=== PATIENT | female | born 1955 | race Caucasian/White ===

== ENCOUNTER 2019-09-10 01:19 | Outpatient (CLI) | payer MEDICARE, SELFPAY ==
--- NOTE | 2019-09-10 08:28 | DI.MAMMO_ITS ---
EXAM: MAMMO SCREENING CLINICAL HISTORY: SCREENING, Z12.31, [facility], Z00.00. TECHNIQUE: Full field digital CC and MLO mammographic images were obtained with 3D tomosynthesis and utilizing computer aided detection (CAD). COMPARISON: . 2009 to 2016 FINDINGS: Breast Density - Category B - Scattered areas of fibroglandular density Masses/Architectural Distortion: None seen. Microcalcifications: No suspicious pleomorphic-type calcifications are seen. Skin Thickening/Nipple Retraction: None. Axilla: Unremarkable. IMPRESSION: 1. BI-RADS category 1, negative. No significant interval change with no specific features of maligna ncy noted. 2. Unless there is more urgent need, screening mammography is recommended, as per [employer] guidelines. A negative radiographic report should not delay biopsy if a dominant or clinically suspicious mass is present. Up to ten percent of cancers are not identified on mammography. A negative report may reinforce clinical impression. Adenosis and dense breasts may obscure an underlying neoplasm. False positive reports average 6 to 10%. Patient will receive a letter notifying them of these results.
== END 2019-09-10 01:39 ==
PROVIDERS: PCP Family Medicine; Visit Provider Family Medicine
DX: Z12.31 Encounter for screening mammogram for malignant neoplasm of breast (principal)
CPT/HCPCS: 77063; 77067

== ENCOUNTER 2019-09-11 13:39 | Outpatient (REF) | payer MEDICARE, SELFPAY ==
--- NOTE | 2019-09-11 13:25 | PAPFT_PTH ---
PATIENT: Denice Alcala LOC: [facility] U#:[id number] AGE/SX: 64/F ROOM: RE09/11/[address]: Jaren Anderson MD : 1955 BED: DIS: 09/11/2019 SPEC #: [id number] RECD: 09/11/19 17:11 STATUS: QASIM REQ #: [id number] SUNNI: 09/11/19 13:[address]: Jaren Anderson DEPT: [facility] Cytology RECD BY: Uma Lilly ENTERED: 09/11/19 17:11 SP TYPE: PAPFT OTHR DR: Rita Helm V Tissues: 1 - CX/ENDOCX FOR PAP SMEARS Procedures: PAP THIN PREP/UVM Screening HPV DNA PROBE Comments: [id number]
== END 2019-09-11 13:59 ==
LOC: LBN 13:39
PROVIDERS: PCP Family Medicine; Visit Provider Obstetrics & Gynecology
DX: Z12.4 Encounter for screening for malignant neoplasm of cervix (principal); Z11.51 Encounter for screening for human papillomavirus (HPV)
CPT/HCPCS: 88142; 87624

== ENCOUNTER 2021-07-19 17:12 | Outpatient (REF) | payer MEDICARE, SELFPAY ==
[2021-07-21 17:01] LABS: COVID-19 RT-PCR UVMMC Result Negative (Negative)
== END 2021-07-19 17:13 | disposition home or self-care (01) ==
LOC: NCHCN 17:12
PROVIDERS: PCP Family Medicine; Visit Provider Family Medicine
DX: Z20.822 Contact with and (suspected) exposure to COVID-19 (principal); R42 Dizziness and giddiness
CPT/HCPCS: U0003

== ENCOUNTER 2021-07-20 03:10 | Outpatient (CLI) | payer MEDICARE, SELFPAY ==
[2021-07-20 07:55] LABS: HCT 49.1 % (36.0-46.0); HGB 15.6 g/dL (11.2-15.7); MCH 29.9 pg (27.0-33.0); MCHC 31.8 % (32.0-36.0); MCV 94.1 fL (80-95); MPV 9.3 fL (8.0-11.0); Platelet Count 270 10^3/uL (130-400); RBC 5.22 10^6/uL (3.93-5.22); RDW 13.2 % (11.7-14.6); RDW-SD 44.9 fL; WBC 8.87 10^3/uL (4.4-10.8)
[2021-07-20 08:09] LABS: Hemoglobin A1C 5.7 % (<5.7)
[2021-07-20 09:29] LABS: ALT 760 U/L (14-59); AST 376 U/L (15-37); Alkaline Phosphatase 273 U/L (46-116); Anion Gap 8.5 mmol/L (3-11); BUN 10 mg/dL (7-18); Bilirubin, Total 0.8 mg/dL (0.2-1.0); CO2 29.5 mmol/L (21.0-32.0); CREATININE 0.8 mg/dL (0.55-1.02); Calcium 9.4 mg/dL (8.5-10.1); Calculated LDL 112 mg/dL (<100); Chloride 102 mmol/L (98-107); Cholesterol 211 mg/dL (<200); Glucose 88 mg/dL (74-106); HDL Cholesterol 64 mg/dL (40-60); Potassium 4.3 mmol/L (3.5-5.1); Sodium 140 mmol/L (136-145); TSH (W/Ref FT4) 2.83 uIU/mL (0.36-3.74); Total Protein 7.9 g/dL (6.4-8.2); Triglyceride 177 mg/dL (<150)
[2021-07-20 09:36] LABS: Lipase 111 U/L (73-393)
== END 2021-07-20 03:11 | disposition home or self-care (01) ==
LOC: LBO 03:10
PROVIDERS: PCP Family Medicine; Visit Provider Family Medicine
DX: R10.9 Unspecified abdominal pain (principal); Z00.00 Encounter for general adult medical examination without abnormal findings; R11.0 Nausea
CPT/HCPCS: 36415; 80053; 80061; 83690; 85027; 83036; 84443

== ENCOUNTER 2021-07-21 09:22 | Outpatient (CLI) | payer MEDICARE, SELFPAY ==
--- NOTE | 2021-07-21 | DI.US_ITS ---
Exam(s) US ABDOMEN LIMITED EXAM: US ABDOMEN LIMITED CLINICAL HISTORY: ABD PAIN, R10.9, NAUSEA, R11.0, ELEVATED LFTS, R79.89 TECHNIQUE: Ultrasound abdomen performed using standard protocol. COMPARISON: No exams were available for comparison FINDINGS: There is no ascites evident. LIVER: There are no hepatic lesions evident nor dilatation of intrahepatic ducts. GALLBLADDER/BILIARY: There are no shadowing gallstones. But there does appear to be echogenic sludge in the gallbladder. No gallbladder wall edema nor pericholecystic fluid. The common hepatic duct isnot dilated, measuring 5.5mm at the level of marlene hepatis. PANCREAS: There is no evidence of obvious pancreatic mass nor dilatation of the pancreatic duct. Jasmine creas is somewhat obscured by overlying bowel gas. RIGHT KIDNEY:No evidence of solid mass, calculus, nor hydronephrosis. No cortical cysts evident. ABDOMINAL AORTA AND IVC: Visualized portions exhibit normal caliber. IMPRESSION: 1. There is echogenic sludge in the gallbladder. No large shadowing gallstones nor gallbladder wall edema nor gross over distension of the gallbladder. Common hepatic duct is not dilated. 2. Correlation with site of tenderness recommended. 3. There is no ascites. DATA REPOSITORY:
--- NOTE | 2021-07-21 16:36 | DI.VRAD_ITS ---
PROCEDURE INFORMATION: Exam: US Abdomen, Limited; Right Upper Quadrant Exam date and time: 07/21/2021 10:05 AM Age: 65 years old Clinical indication: Abnormal findings; Abnormal lab test; Elevated liver enzymes TECHNIQUE: Imaging protocol: US abdomen. Real time ultrasound with image documentation. Limited exam focused on the right upper quadrant. COMPARISON: No relevant prior studies available. FINDINGS: Liver: Mild increased echogenicity of the liver consistent with fatty infiltration. Gallbladder: Probable gallbladder sludge. Common bile duct: Normal. No stones. No dilation. Pancreas: Visualized pancreas is unremarkable. Right kidney: Normal. No mass. No hydronephrosis. IMPRESSION: No acute findings. Fatty liver and probable gallbladder sludge Dictated and Authenticated by: Eleni Cotto MD. Ordering:FAVIAN Salinas MD
== END 2021-07-21 09:42 ==
PROVIDERS: PCP Family Medicine; Visit Provider Family Medicine
DX: R10.9 Unspecified abdominal pain (principal); R11.0 Nausea; R79.89 Other specified abnormal findings of blood chemistry; K76.0 Fatty (change of) liver, not elsewhere classified; R93.5 Abnormal findings on diagnostic imaging of other abdominal regions, including retroperitoneum
CPT/HCPCS: 76705

== ENCOUNTER 2021-08-01 16:46 | Outpatient (REF) | payer MEDICARE, SELFPAY ==
[2021-08-03 14:58] LABS: COVID-19 RT-PCR UVMMC Result Negative (Negative)
== END 2021-08-01 16:47 | disposition home or self-care (01) ==
LOC: NCHCN 16:46
PROVIDERS: PCP Family Medicine; Visit Provider Family Medicine
DX: Z20.822 Contact with and (suspected) exposure to COVID-19 (principal); J06.9 Acute upper respiratory infection, unspecified
CPT/HCPCS: U0003

== ENCOUNTER 2021-08-05 03:52 | Outpatient (CLI) | payer MEDICARE, SELFPAY ==
[2021-08-05 07:30] LABS: HCT 44.5 % (36.0-46.0); HGB 14.4 g/dL (11.2-15.7); MCH 30.3 pg (27.0-33.0); MCHC 32.4 % (32.0-36.0); MCV 93.5 fL (80-95); Platelet Count 308 10^3/uL (130-400); RBC 4.76 10^6/uL (3.93-5.22); RDW 12.6 % (11.7-14.6); RDW-SD 43.5 fL; WBC 7.48 10^3/uL (4.4-10.8)
[2021-08-05 07:51] LABS: Hemoglobin A1C 5.7 % (<5.7)
[2021-08-05 08:49] LABS: ALT 40 U/L (14-59); AST 20 U/L (15-37); Albumin 3.7 g/dL (3.4-5.0); Alkaline Phosphatase 120 U/L (46-116); Anion Gap 7.2 mmol/L (3-11); BUN 20 mg/dL (7-18); Bilirubin, Total 0.4 mg/dL (0.2-1.0); CO2 29.8 mmol/L (21.0-32.0); CREATININE 0.9 mg/dL (0.55-1.02); Calcium 9.1 mg/dL (8.5-10.1); Calculated LDL 103 mg/dL (<100); Chloride 103 mmol/L (98-107); Cholesterol 185 mg/dL (<200); Glucose 90 mg/dL (74-106); HDL Cholesterol 45 mg/dL (40-60); Potassium 4.4 mmol/L (3.5-5.1); Sodium 140 mmol/L (136-145); TSH (W/Ref FT4) 2.21 uIU/mL (0.36-3.74); Total Protein 7.4 g/dL (6.4-8.2); Triglyceride 187 mg/dL (<150)
[2021-08-05 08:56] LABS: Lipase 131 U/L (73-393)
== END 2021-08-05 03:53 | disposition home or self-care (01) ==
LOC: LBO 03:52
PROVIDERS: PCP Family Medicine; Visit Provider Family Medicine
DX: R79.89 Other specified abnormal findings of blood chemistry (principal); R10.9 Unspecified abdominal pain; R11.0 Nausea; Z00.00 Encounter for general adult medical examination without abnormal findings
CPT/HCPCS: 36415; 80053; 80061; 83690; 85027; 83036; 84443

== ENCOUNTER → 2021-08-11 14:17 | Outpatient (BNVA) | payer MEDICARE, SELFPAY | PROVIDERS: PCP Family Medicine; Referring Provider Family Medicine; Visit Provider Surgery | DX: K82.8 Other specified diseases of gallbladder (principal); Z80.0 Family history of malignant neoplasm of digestive organs; K76.0 Fatty (change of) liver, not elsewhere classified | CPT/HCPCS: 99204; 99243 ==

== ENCOUNTER 2021-08-22 01:56 | Outpatient (CLI) | payer MEDICARE, SELFPAY ==
--- NOTE | 2021-08-22 | DI.CT_ITS ---
Exam(s) CT ABDOMEN PELVIS W EXAM: CT ABDOMEN PELVIS W CLINICAL HISTORY: NAUSEA,R11.0,ABD PAIN,R10.9,ELEVATED LFT'S,R79.89. TECHNIQUE: Imaging Protocol: Axial computed tomography images with coronal and sagittal reformatted images were created and reviewed CONTRAST MATERIAL: Intravenous: Omnipaque 100cc Oral: Yes. Oral contrast was administered for bowel opacification. COMPARISON: No exams were available for comparison FINDINGS: VISUALIZED LUNG BASES: No nodules nor pleural effusions evident. ABDOMEN: There is no ascites. Large hiatal hernia noted which measures 5.5 cm wide by 4.5 cm AP by 5 cm crani ocaudal. LIVER: There are no focal hepatic lesions evident. No dilatation of intrahepatic ducts GALLBLADDER/BILIARY: No obvious gallbladder pathology. CBD is not dilated. PANCREAS: No evidence of pancreatic mass nor dilatation of the pancreatic duct. SPLEEN: Spleen is not enlarged. No obvious intrasplenic lesions. Splenic and portal veins are paten t. ADRENALS: There are no significant adrenal masses. KIDNEYS:No cysts evident. No solid renal masses. No calculi nor hydronephrosis.. ABDOMINAL AORTA: Abdominal aorta is not enlarged. LYMPH NODES:There is no retroperitoneal nor paraaortic adenopathy. ABDOMINAL WALL: No evidence of significant anterior abdominal wall nor inguinal hernia. GI: There is no evidence of bowel obstruction, free air, nor abscess. Administered oral contrast has reached the right-side of the colon.. No bowel obstruction evident. PELVIS: GI: No evidence of appendicitis.No evidence of sigmoid diverticulitis. LYMPH NODES: There is no intrapelvic nor inguinal adenopathy. REPRODUCTIVE: Uterus is surgically absent. Upper vaginal pessary noted. No abnormal adnexal masses. N o free fluid in the pelvis. URINARY BLADDER: No calculi nor obvious masses evident OSSEOUS: No significant osseous lesions. Chronic disc space narrowing L5-S1 level noted. No listhesis. IMPRESSION: 1. Large hiatal hernia measuring 5.5 x 4.5 x 5 cm. 2. Prior hysterectomy. No abnormal pelvic masses. No free fluid 3. No bowel obstruction. The oral contrast has reached the right-side of the colon. 4. RADIATION DOSE DELIVERED: 1,129mGy.cm Total DLP DATA REPOSITORY: All CT scans at this facility are submitted to the National Radiology Data Registry (NRDR) Dose Index Registry (DIR) with the [employer] (ACR). RADIATION OPTIMIZATION: All CT scans at this facility use at least one of these dose optimization te chniques: automated exposure control; mA and/or kV adjustment per patient size (includes targeted exa ms where dose is matched to clinical indication); or iterative reconstruction.
[2021-08-22] MEDS: Omnipaque 350 MG/ML 50 ML BTL PO (09:57)
[2021-08-22] MEDS: Breeza Beverage 473 ML BTL PO ×2 (09:58)
[2021-08-22] MEDS: Omnipaque 350 MG/ML 100 ML BTL IJ (11:17)
== END 2021-08-22 02:16 ==
PROVIDERS: PCP Family Medicine; Visit Provider Family Medicine
DX: R11.0 Nausea (principal); R10.9 Unspecified abdominal pain; R79.89 Other specified abnormal findings of blood chemistry; K44.9 Diaphragmatic hernia without obstruction or gangrene; Z90.710 Acquired absence of both cervix and uterus
CPT/HCPCS: 74177; J3490; Q9967

== ENCOUNTER 2021-08-22 03:48 | Outpatient (CLI) | payer MEDICARE, SELFPAY ==
[2021-08-22 14:03] LABS: Iron 56 ug/dL (50-170); Total Iron Binding Capacity 295 ug/dL (250-450); Transferrin Sat 19 % (15-50)
[2021-08-22 14:06] LABS: Creatine Kinase 90 U/L (26-192); GGT 63 U/L (5-55)
[2021-08-22 14:31] LABS: Ferritin 144 ng/mL (8-252)
[2021-08-23 10:32] LABS: HBs Antibody, Qual Negative (See Note); HBs Antibody, Quant <3.1 mIU/mL (See Note); Hepatitis B Core Antibody Negative (Negative); Hepatitis B surface Ag Negative (Negative); Hepatitis C Ab w Rflx HCV PCR Negative (Negative)
[2021-08-23 13:49] LABS: ANA Interpretation Positive (Negative); ANA Titer Pattern 1:80 Homogeneous
== END 2021-08-22 03:49 | disposition home or self-care (01) ==
LOC: LBO 03:48
PROVIDERS: PCP Family Medicine; Visit Provider Surgery
DX: E78.00 Pure hypercholesterolemia, unspecified (principal); K82.8 Other specified diseases of gallbladder; R10.12 Left upper quadrant pain; R74.8 Abnormal levels of other serum enzymes; R79.89 Other specified abnormal findings of blood chemistry; Z80.0 Family history of malignant neoplasm of digestive organs
CPT/HCPCS: 36415; 82550; 86704; 86706; 86803; 87340; 82728; 82977; 83540; 83550; 86038; 86140

== ENCOUNTER → 2021-08-29 11:21 | Outpatient (BNVA) | payer MEDICARE, SELFPAY | PROVIDERS: PCP Family Medicine; Referring Provider Family Medicine; Visit Provider Surgery | DX: R10.12 Left upper quadrant pain (principal) | CPT/HCPCS: 99212; 99214 ==

== ENCOUNTER 2021-09-21 00:26 | Outpatient (CLI) | payer MEDICARE, SELFPAY ==
--- NOTE | 2021-09-21 06:45 | DI.NM_ITS ---
Exam(s) NM HEPATOBILIARY CCK GRP EXAM: NM HEPATOBILIARY CCK GRP CLINICAL HISTORY: RUQ pain/sludge on US,r10.9,k82.8. TECHNIQUE: Injected dose: 5 mCi Tc-99 mebrofenin Initial dynamic images: 60 minutes Post-Gallbladder fillin.2 micrograms CCK intravenously over a 39 minutes infusion. Addition images: 20 minute dynamic during CCK administration. COMPARISON: CT CT ABDOMEN PELVIS W from 08/22/2021 FINDINGS: Normal hepatic transit time. Prompt excretion into the small bowel. Prompt excretion into the gallbladder. Gallbladder ejection fraction 36 percent, below the lower coello it of normal of 40 percent. IMPRESSION: 1. No evidence of acute cholecystitis. Low gallbladder ejection fraction of 36 percent... SNM guidelines: Gallbladder visualization should be present by 3 hours. Delayed [id number] ortiz sit beyond 60 min raises the suspicion for partial common bile duct (CBD) obstruction. Gallbladder ejection fraction <35% has a good correlation with acalculous disease (i.e., chronic acal culous cholecystitis, cystic duct syndrome, sphincter of Oddi disease).
== END 2021-09-21 00:46 ==
PROVIDERS: PCP Family Medicine; Visit Provider Surgery
DX: K82.8 Other specified diseases of gallbladder (principal); R10.11 Right upper quadrant pain
CPT/HCPCS: 78227

== ENCOUNTER → 2021-09-26 09:52 | Outpatient (BNVA) | payer MEDICARE, SELFPAY | PROVIDERS: PCP Family Medicine; Referring Provider Family Medicine; Visit Provider Surgery | DX: K76.0 Fatty (change of) liver, not elsewhere classified (principal); R74.8 Abnormal levels of other serum enzymes; Z80.0 Family history of malignant neoplasm of digestive organs; K82.8 Other specified diseases of gallbladder | CPT/HCPCS: 99213 ==

== ENCOUNTER → 2021-11-03 12:39 | Outpatient (BNVA) | payer MEDICARE, SELFPAY | PROVIDERS: PCP Family Medicine; Referring Provider Family Medicine; Visit Provider Surgery | DX: K82.8 Other specified diseases of gallbladder (principal) | CPT/HCPCS: 99213 ==

== ENCOUNTER 2021-12-05 01:18 | Outpatient (CLI) | payer MEDICARE, SELFPAY ==
[2021-12-05 12:32] LABS: Source Nasal/Nares
[2021-12-05 19:01] LABS: COVID-19 PCR Negative (Negative)
== END 2021-12-05 01:19 | disposition home or self-care (01) ==
LOC: LBO 01:18
PROVIDERS: PCP Family Medicine; Visit Provider Surgery
DX: Z20.822 Contact with and (suspected) exposure to COVID-19 (principal); Z01.818 Encounter for other preprocedural examination
CPT/HCPCS: 87635

== ENCOUNTER 2021-12-06 06:20 | Day surgery (SDC) | payer MEDICARE, SELFPAY ==
--- NOTE | 2021-12-02 12:03 | W.PM.HP.N ---
Assessment and Plan Assessment and plan (1) Biliary dyskinesia: Status: Acute (2) Fatty liver disease, nonalcoholic: Status: Acute (3) Elevated alkaline phosphatase level: Status: Acute (4) Elevated cholesterol: Status: Chronic (5) Elevated LFTs: Status: Acute (6) Family history of cancer of gallbladder: Status: Acute (7) Family history of pancreatic cancer: Status: Acute (8) Gallbladder sludge: Status: Acute Assessment and plan: .? The alternatives to surgery, risks, complications, and the possible need to convert to open cholecystectomy were discussed. Also bleeding, infection, pneumonia, blood clots, complications of anesthesia, damage to bowel, bladder, blood vessels, or bile ducts, liver, need for blood transfusions. Also: chronic pain, chronic diarrhea, reoccurrence of signs and symptoms, port site hernias, adhesions.? All questions were answered and the patient elected to proceed with surgery History of Present Illness Consults Consult date: 12/06/21 Narrative: pt has been feeling ok, no bad attacks. ? She has been hypervigalent about avoiding fats.? She feels like it is compramising her lifestyle and would like to have surgery. occ will feel grumbly. The? nausea is better? no diarrhea She is tired of angst about eating. and fat phobia. no smoker no problems w/ anesthesia no CT/CVA no DM no CPAP/SHARMILA no steroids no blood thinners HIDA scan: Normal hepatic transit time. Prompt excretion into the small bowel. Prompt excretion into the gallbladder.? Gallbladder ejection fraction 36 percent, below the lower limit of normal of 40 percent. IMPRESSION: 1. No evidence of acute cholecystitis.? Low gallbladder ejection fraction of 36 percent. -Patient is here today for gallbladder surgery. She has been feeling OK. SHe had no major problems during her trip to [place]. Today she has no chest pain or shortness of breath. She is having minimal right upper quadrant pain today. She has no fevers or productive cough. She has had no nausea vomiting. Review of Systems All systems reviewed & are unremarkable except as noted in HPI and below PFSH All Active Problems Biliary dyskinesia (Acute) Fatty liver disease, nonalcoholic (Acute) Elevated alkaline phosphatase level (Acute) Elevated cholesterol (Chronic) Elevated LFTs (Acute) Family history of cancer of gallbladder (Acute) Family history of pancreatic cancer (Acute) LUQ abdominal pain (Acute) Gallbladder sludge (Acute) Cystocele (Acute) Vaginal erosion secondary to pessary use (Acute) Medical History Ovarian cyst Rosacea Seborrheic keratosis Urinary incontinence Uterine fibroid Surgical History Abdominal hysterectomy Colonoscopy - [facility] 2004, 2015-nl Excision, Lipoma (10/18/17) left inner thigh Open Carpal Tunnel release Family History (Updated 09/28/17 @ 11:41 by Ramandeep Ocampo MD) Other Colon cancer Gallbladder cancer Pancreatic cancer Social History Smoking/Tobacco Use Status: Never Smoking risk assessment performed?: Yes Alcohol Intake: never Drug use: Never Substance use type: does not use Do you feel safe at home: Yes Do you feel safe in your relationship?: Yes Meds Allergies and Home Medications Allergies Allergy/AdvReac Type Severity Reaction Status Date / Time No Known Allergies Allergy Verified 12/06/21 06:47 Home Medications Medication Instructions Recorded Confirmed Type magnesium 200 mg tablet 200 mg PO DAILY 08/11/21 12/06/21 History pantoprazole 40 mg tablet,delayed 40 mg PO DAILY #30 tab 08/29/21 12/06/21 Rx release (Protonix) ondansetron 4 mg disintegrating 4 mg PO Q6H PRN #6 tab 12/05/21 Rx tablet tramadol 50 mg tablet (Ultram) 50 mg PO Q6H PRN #10 tab 12/05/21 Rx Exam Narrative Exam Narrative: PHYSICAL EXAM GENERAL APPEARANCE: Alert, healthy appearance, oriented, in no acute distress SKIN: No rashes.? No breakdown HYDRATION: Well hydrated HEAD, EYES, EARS, NECK, THROAT: Head is normocephalic, pupils equal, round, reactive to light and accommodation, ocular movement intact, sclera clear and no jaundice. ?Dentition intact. No sore throat.? No jaw pain. No thrush NECK: Supple, Trachea midline. No JVD. LUNGS: normal respiration/nl chest excursion. ?Clear to auscultation B/l no R/R/W ?HEART: Regular rate and rhythm, EXTREMITY: No edema or cyanosis? no leg pain, redness, swelling.? No IV infiltration ABDOMEN: non tender to palpation, no masses or distention, no hernias. Normal bowel sounds NEURO: no focal neuro deficits. ?
--- NOTE | 2021-12-05 12:17 | PDOC.DSDIS_ITS ---
Discharge Plan Disposition Patient Disposition: HOME Condition: Good Discharge Details Reason For Visit: gallbladder removal Attending Provider: Marce Noyola Primary Care Provider: Rita Helm V Home Meds and New Rx's Prescriptions: New ondansetron 4 mg tablet,disintegrating 4 mg PO Q6H PRNQty: 6 0RF tramadol [Ultram] 50 mg tablet 50 mg PO Q6H PRNQty: 10 0RF Continued magnesium 200 mg tablet 200 mg PO DAILY 0RF pantoprazole [Protonix] 40 mg tablet,delayed release (DR/EC) 40 mg PO DAILY Qty: 30 12RF Discharge Instructions Additional Instructions: Care after Gallbladder Surgery ? ? -Pain control: ?For the first 72 hours after surgery, take you pain meds continuously and not just when you have pain.?? Alternate Tylenol 1000mg by mouth every 8 hours, and Ibuprofen 600mg every 6 hours.? Make sure you take ibuprofen with food and not on an empty stomach.? ??Use the tramadol for breakthrough pain- pain that is greater than a 7. ?- Use ICE! Ice really helps to keep the swelling down, and swelling causes pain. ??Twenty minutes on, and then off, continuously for the first 72hours.? After the first 72hrs, you can just use the Tylenol, ibuprofen or Celebrex, and ice, ?when you have pain.?? If you are taking narcotic pain medication, follow the instructions on the label and do not drive. Pain medications can make you very constipated. Make sure you are moving your bowels daily. If not, take Miralax, milk of magnesia or magnesium citrate.? - Anesthesia makes you very constipated.? Take a dose of milk of magnesia the morning after surgery. ? Use an ice bag for the first 72 hours. This helps to decrease swelling, which causes pain. It is normal to be more sore/painful and swollen towards the end of the day and first thing in the morning. ? Gallbladder surgery can make you very nauseated; use Zofran for nausea, for the first 24 hours. The nausea generally stops after 24 hours. ? Use milk of magnesia or prune juice to prevent constipation (this is a particular side effect of pain medication and anesthesia). Do not allow yourself to become constipated. ? ? Avoid fatty or greasy foods; introduce these slowly, with care, after about 1 month. ? High-fat foods include: ? Foods that are fried, like Persian fries and potato chips ? High-fat meats, such as mcgrath, bologna, sausage, ground beef, and ribs, pork products ? High-fat dairy products, such as cheese, ice cream, cream, whole milk, and sour cream ? Pizza ? Foods made with lard or butter ? Creamy soups or sauces ? Meat gravies ? Chocolate ? Oils, such as palm and coconut oil ? Skin of chicken or turkey ? Nuts and nut butters ? Avacadoes ? ? Start out eating very small, bland amounts of food. Do not take pain pills on an empty stomach. - You will notice purple discoloration around the incisions.? This is the ?skin glue?.? This will wear off on its own.? It is OK to shower after 24hrs.? You do not need to cover the incisions. -You should walk frequently, gradually, increasing the distance. You may climb stairs, just go slowly. ? Do not go swimming or sit in a hot tub for two weeks. ? There are no stitches to remove. ? Do not drive your car x72hrs and then only if you have no pain and can move freely. Do not drive if you are taking pain narcotic pain medications. ? You may resume sexual activity whenever pain and soreness subside, usually in 2 weeks. ? Do no lift anything over 5 lbs. for two weeks. ? You may return to work in one week, or when you feel able, provided you do not have to do any heavy lifting or prolonged standing. ? ? You should return to Dr. Noyola?s office for a post-op appointment about two weeks after surgery. A follow-up should have been scheduled for you already.? If there is not, please call the Surgical Clinic at: [phone] to schedule an appointment. ? My Medications for pain and nausea are: Tylenol/ibuprofen ?and ultram- for severe pain ?and Zofran-nausea ? ? When to Call the Office: ? If the incision becomes red or swollen, or there is more than a little d rainage from it. ? If you develop a temperature higher than 100.5 F. ? If your eyes turn yellow ? Vomiting and can?t keep fluids down ? Activity:: See above Remove Dressings/Wound Care:: 24 hours Shower/Bathe:: 24 hours Diet:: Low-fat x2 weeks Discharge Orders Discharge Orders: Discharge Order (Routine); Ordered 12/05/21 Ordered By: Marce Noyola DS: Diagnosis Discharge Diagnosis (1) Biliary dyskinesia: Status: Acute (2) Fatty liver disease, nonalcoholic: Status: Acute (3) Elevated alkaline phosphatase level: Status: Acute (4) Elevated cholesterol: Status: Chronic (5) Elevated LFTs: Status: Acute (6) Family history of cancer of gallbladder: Status: Acute (7) Family history of pancreatic cancer: Status: Acute (8) Gallbladder sludge: Status: Acute
[2021-12-06] VITALS (9 sets, daily range): BP systolic 129–164; BP diastolic 73–98; PULSE 52–72; RESP 11–16; TEMP 36–36.6; O2SAT 94–100; BMI 27.9
[2021-12-06] MEDS: Acetaminophen 500 MG TAB 1000 MG PO (06:56)
[2021-12-06] MEDS: Gabapentin 300 MG CAP 600 MG PO (06:56)
[2021-12-06] MEDS: Lactated Ringers 1,000 ML 80 ML IV (07:00)
--- NOTE | 2021-12-06 07:05 | W.ANESPRE ---
General Info Date of Service Date Performed: 12/06/21 Height: 5 ft 7 in Weight: 80.9 kg Body Mass Index (BMI): 27.9 Surgical Procedure: Operation Date: 12/06/21 07:40 Proposed Procedure Side Surgeon p Cholecystectomy Laparoscopic Marce Noyola DO Meds Allergies and Home Medications Allergies Allergy/AdvReac Type Severity Reaction Status Date / Time No Known Allergies Allergy Verified 12/06/21 06:47 Home Medication Medication Instructions Recorded magnesium 200 mg tablet 200 mg PO DAILY 08/11/21 pantoprazole 40 mg tablet,delayed 40 mg PO DAILY #30 tab 08/29/21 release (Protonix) ondansetron 4 mg disintegrating 4 mg PO Q6H PRN #6 tab 12/05/21 tablet tramadol 50 mg tablet (Ultram) 50 mg PO Q6H PRN #10 tab 12/05/21 Current Visit Medications: Current Medications Generic Name Dose Route Start Last Admin Trade Name Freq PRN Reason Stop Dose Admin Acetaminophen 1,000 mg 12/06/21 06:00 12/06/21 06:56 Acetaminophen 500 Mg Tab PO 01/04/22 23:59 1,000 mg PREOP JORDYN Administration Gabapentin 600 mg 12/06/21 06:00 12/06/21 06:56 Gabapentin 300 Mg Cap PO 01/04/22 23:59 600 mg PREOP JORDYN Administration Ringer's Solution 1,000 mls @ 80 mls/hr 12/06/21 06:00 IV 01/04/22 23:59 INFUSION JORDYN Cefazolin Sodium/Dextrose 2 gm in 50 mls @ 100 mls/hr 12/06/21 06:00 Ancef Duplex IVPB 01/04/22 23:59 PREOP JORDYN Ondansetron HCl 4 mg/ Sodium 52 mls @ 200 mls/hr 12/05/21 09:52 Chloride IVPB Q6H PRN PRN IV Miscellaneous Supplies 1 each 12/06/21 06:00 Iv Access IV 01/04/22 23:59 DIRECTED JORDYN Morphine Sulfate 2 mg 12/05/21 09:52 Morphine 4 Mg/Ml Syr IVP Q1H PRN PRN Sodium Chloride 0 ml 12/06/21 06:00 Normal Saline Flush 10 Ml Syr IV 01/04/22 23:59 PRN PRN Sodium Chloride 0 ml 12/06/21 06:00 Normal Saline 10 Ml Vial IJ 01/04/22 23:59 DIRECTED PRN Sterile Water 0 ml 12/06/21 06:00 Water,Injection,Sterile 10 Ml Vial IJ 01/04/22 23:59 DIRECTED PRN Tramadol HCl 50 mg 12/05/21 09:52 Tramadol 50 Mg Tab PO Q6H PRN PRN Pain PFSH Active Problems Active Problems: Problem Status Onset Code Biliary dyskinesia K82.8 Fatty liver disease, nonalcoholic K76.0 Elevated alkaline phosphatase level R74.8 Elevated cholesterol E78.00 Elevated LFTs R79.89 Family history of cancer of gallbladder Z80.0 Family history of pancreatic cancer Z80.0 LUQ abdominal pain R10.12 Gallbladder sludge K82.8 Cystocele Vaginal erosion secondary to pessary use T83.89XA, N89.8 Medical History Medical History Ovarian cyst Rosacea Seborrheic keratosis Urinary incontinence Uterine fibroid Medical History Comments:: pt. reports being cold after surgery Surgical History Surgical History Abdominal hysterectomy Colonoscopy - MAC 2004, 2015-nl Excision, Lipoma (10/18/17) left inner thigh Open Carpal Tunnel release Tobacco Smoking/Tobacco Use Status: Never Alcohol Alcohol Intake: never Substance Use Substance use: Never Substance use type: does not use Vital Signs and Lab Results Vital Signs Most Recent Vital Signs in EMR: Most Recent Vital Signs Temp Pulse Resp BP Pulse Ox 36.5 C 72 14 139/98 H 98 12/06/21 06:43 12/06/21 06:43 12/06/21 06:43 12/06/21 06:43 12/06/21 06:43 Lab Results Blood Type / Crossmatch: No Data to Display Complete Blood Count: No Data to Display Complete Metabolic Panel: No Data to Display Liver Function Panel: No Data to Display Coagulation Panel: No Data to Display Cardiac Panel: No Data to Display Arterial Blood Gas: No Data to Display Venous Blood Gas: No Data to Display Pancreas Panel: No Data to Display Thyroid Panel: No Data to Display Infectious Disease: Coronavirus (COVID-19)(PCR) Negative (Negative) 12/05/21 08:46 12/05/21 Coronavirus 2019 Source Nasal/Nares 12/05/21 08:46 12/05/21 Blood Cultures: No Data to Display Toxicology Panel: No Data to Display Anesthesia Assessment and Plan Anesthesia History Personal History: No History of Anesthesia Complications Family History: No Family History of Anesthesia Complications Exercise Tolerance Exercise Tolerance: Metabolic Equivalents>4 Pertinent Negatives Pertinent Negatives: No Symptoms of GERD Cardiac & Pulmonary Exam Cardiac Exam: Normal S1/S2 Heart Sounds Pulmonary Exam: Clear Bilateral Breath Sounds Implantable Cardiac Device Does patient have a Pacemaker or an ICD?: No Airway Exam Known Difficult Airway: No Mallampati Class: 1 Mouth Opening: Normal (> 3cm) Thyromental Distance: Greater than 3 cm Neck Range of Motion: Full ROM Neck Circumference: Normal Teeth Condition: Normal Dentition ASA Classification ASA Score: ASA 2 Emergency Case?: No NPO Status NPO Status: NPO Clears >2 hours, Solids >8 hours Anesthesia Plan Resuscitation Status: Other Anesthesia Technique: General Anesthesia Airway Planned: Endotracheal Tube Monitors Used: Standard Monitors
[2021-12-06] MEDS: ceFAZolin 2 GM/50 ML BAG IVPB (07:40)
--- NOTE | 2021-12-06 08:40 | GB_PTH ---
PATIENT: Denice Alcala LOC: [facility] U#:[id number] AGE/SX: 66/F ROOM: RE12/06/[address]: Marce Noyola : 1955 BED: DIS: 12/06/2021 SPEC #: [id number] RECD: 12/06/21 12:50 STATUS: QASIM REQ #: [id number] SUNNI: 12/06/21 08:[address]: Marce Noyola DEPT: Surgical Specimen RECD BY: Uma Lilly ENTERED: 12/06/21 12:51 SP TYPE: GB OTHR DR: Rita Helm V Tissues: 1 - GALLBLADDER Procedures: GROSS AND MICRO LEVEL 3 Comments: [id number]
--- NOTE | 2021-12-06 09:37 | ROE_ITS ---
Date of service: 12/06/21 Time of Service: 09:38 Operative Note Operative Note DATE OF PROCEDURE: 12/06/21 PRE-OP DIAGNOSIS: chronic sander POST-OP DIAGNOSIS: other (incisional hernia) PROCEDURE: lap sander repair of incarcerated bowel/incisional hernia SURGEON: Bear Hannon ASSEMBLER HYDRAULIC BACKHOE: Nati Hansen ANESTHESIA TYPE: Local By Surgeon and General LMA/ETT Refer to Anesthesia Record ESTIMATED BLOOD LOSS: 5 PATHOLOGY: other COMPLICATIONS: None Patient was transported to: PACU Patient's condition: stable Procedure Description: INDICATIONS: The pt is seen at the request of there PCP regarding acute on chronic cholecystitis, cholelithiasis. The pt has failed outpt conservative medical measures and is here today for laparoscopic cholecystectomy. Informed consent was obtained, explaining risks and benefits of the procedure including but not limited to bleeding, infection, pneumonia, blood clots, possible damage to bowel, bladder, blood vessels, bile ducts, possible open procedure, complications of general anesthesia and other unforetold complications. PROCEDURE: The patient agrees and is brought to the operative room suite and placed in supine position. Anesthesia was administered per the Department of Anesthesia. The patient did receive IV antibiotics. NG tube and Peck catheter are placed. The patient was prepped and draped in the usual sterile fashion using DuraPrep scrub solution. Pause for the cause was done. 30 mL of quarter percent Marcaine with epi was used for local anesthetization. Patient has had a previous vertical midline incision,. #12 blade is used to make a 1 inch incision. Electrocautery is used to provide hemostasis. Cornelia's are used to grasp the fascia and the fascia is incised midline. A finger is placed through the peritoneum bluntly and swept. No adhesions are noted. Stay sutures of 0 Vicryl are placed through the fascia. A Barrow catheter is then inserte, and insufflation is begun. The catheter has been inserted. A 5 mm port is then placed in the epigastric position as well as two 5 mm ports in the right upper quadrant. The omentum is intimately adhered up to the gallbladder. This is taken down with a combination of sharp and blunt dissection. The gallbladder fundus was grasped and retracted towards the right shoulder. Infundibulum was grasped and retracted laterally. The hepat-duodenal ligament is entered. The cystic duct and artery are dissected out and the most inferior portion of the gallbladder plate is removed from the liver and the critical view of safety was obtained after clearing away all fatty material. Endo Clips were placed across the duct and artery and these structures are divided. The remainder of the gallbladder was excised from the liver bed. The gallbladder was placed in a bag and brought out and Examination of the gallbladder shows indeed the cystic duct and artery to have been divided. The remainder of the abdomen was copiously irrigated with a liter of saline. All saline is removed. There is no bleeding or bile leakage from the liver bed or the clips sites. The Trocar Site Is Visualized. Upon Looking at umbilical the Trocar, there is Loop of Small Bowel That Appears to Be Incarcerated in the Umbilicus (the trocar is inferior to this). A midline incision is then extended so that we could remove the bowel from the incarcerated umbilical hernia. Once the bowel is removed it is noted that one of the stay sutures had pierced the serosa. This is not a full- thickness bite, but confined to the serosa. There is no leakage of enteric contents. The bowel was pink and healthy. There is no leakage of enteric contents. This closed with 2 stitches of 4--0 Vicryl. The bowel is returned to the abdomen. Surgicel is to place underneath the incision. The fascia is closed with 0 Vicryl. The wound is then irrigated. And then the tissue is closed with 3-0 Vicryl. Skin is approximated with 4-0 Monocryl. Is evacuated and the port sites are monitored to make sure there is no bleeding at the time of desufflation. ?Port sites are irrigated and the skin is closed with 4-0 Monocryl in a running subcuticular fashion. Skin glue sterile dressings are applied. The patient tolerated the procedure well without complications, transferred to the recovery room in stable condition. BEAR HANNON, DO ?
[2021-12-06] MEDS: HYDROmorphone 2 MG/ML VIAL IVP ×2 (10:02→10:22)
[2021-12-06] MEDS: Normal Saline Flush 10 ML SYR IV (11:08)
[2021-12-06] MEDS: Ketorolac 15 MG/ML VIAL IVP (11:08)
--- NOTE | 2021-12-06 14:45 | W.ANESPOSTOP ---
Postoperative Evaluation Date, Time and Location Date Performed: 12/06/21 Time Performed: 14:45 Patient Location: Day [facility] Unit Vital Signs Most Recent Imported Vital Signs: Most Recent Vital Signs Temp Pulse Resp BP Pulse Ox 36.1 C L 58 L 12 145/80 H 97 12/06/21 11:15 12/06/21 11:15 12/06/21 11:15 12/06/21 11:15 12/06/21 11:15 Pain Score Most Recent Pain Score: Most Recent Pain Score Pain Level 3 12/06/21 11:55 Assessment Mental Status: Awake (Alert & Oriented to Patient Baseline) Airway and Respiratory Function: Patent airway with normal (patient baseline) respiratory exam Cardiovascular Function: Hemodynamically Stable Hydration Status: Adequately Hydrated Nausea & Vomiting: No Nausea or Vomiting Pain: Pain is tolerable per patient Peripheral Nerve Block: Patient did not receive a nerve block Postoperative Comments:: Seen in [facility] earlier today
== END 2021-12-06 12:32 | disposition home or self-care (01) ==
LOC: SUR 06:21
PROVIDERS: PCP Family Medicine; Visit Provider Surgery
PROC: 0FT44ZZ Resection of Gallbladder, Percutaneous Endoscopic Approach (ICD-10-PCS; CPT 47562; principal; 2021-12-06 07:30)
DX: K80.12 Calculus of gallbladder with acute and chronic cholecystitis without obstruction (principal); K42.0 Umbilical hernia with obstruction, without gangrene; K76.0 Fatty (change of) liver, not elsewhere classified; E78.00 Pure hypercholesterolemia, unspecified; Z80.0 Family history of malignant neoplasm of digestive organs; Z80.8 Family history of malignant neoplasm of other organs or systems
CPT/HCPCS: 49653; 47562; 88304; J0690; J1100; J1885; J2405

== ENCOUNTER → 2021-12-19 12:47 | Outpatient (BNVA) | payer MEDICARE, SELFPAY | PROVIDERS: PCP Family Medicine; Referring Provider Family Medicine; Visit Provider Surgery | DX: Z48.815 Encounter for surgical aftercare following surgery on the digestive system (principal) ==

== ENCOUNTER → 2021-12-29 13:17 | Outpatient (BNVA) | payer MEDICARE, SELFPAY | PROVIDERS: PCP Family Medicine; Referring Provider Family Medicine; Visit Provider Surgery | DX: K82.8 Other specified diseases of gallbladder (principal); K76.0 Fatty (change of) liver, not elsewhere classified; R74.8 Abnormal levels of other serum enzymes; E78.00 Pure hypercholesterolemia, unspecified; R79.89 Other specified abnormal findings of blood chemistry; Z80.0 Family history of malignant neoplasm of digestive organs; Z48.815 Encounter for surgical aftercare following surgery on the digestive system ==

== ENCOUNTER → 2022-07-27 01:21 | Outpatient (CLI) | payer MEDICARE, SELFPAY ==
--- NOTE | 2022-07-27 | DI.MAMMO_ITS ---
Exam(s) MAMMO SCREENING EXAM: MAMMO SCREENING CLINICAL HISTORY: SCREENING, Z12.31. TECHNIQUE: Bilateral full field digital CC and MLO mammographic images were obtained with 3D tomosyn thesis and utilizing computer aided detection (CAD). COMPARISON: Prior mammograms were reviewed. FINDINGS: There has been no significant change in the appearance and distribution of the fibroglandular tissue. There are no CAD designations. There are no new spiculated masses nor malignant appearing microcalcification groups. There is no significant architectural distortion nor skin thickening-retraction. IMPRESSION: No radiographic evidence of malignancy. BI-RADS Category 1 - Negative Breast Density - Category B - Scattered areas of fibroglandular density Breast density Category C or D implies that the patient has dense breast tissue. Dense breast tissue can make it harder to find cancer on a mammogram. Dense breast tissue is also associated with an incr eased risk of breast cancer. This information about the result of the mammogram report was provided to the patient to raise their awareness. Use this report when you speak with the patient about their risks for breast cancer, which includes their family history. At that time, you may recommend additional screening tests (Ultrasoun d or MRI) as these tests may add significant information. A negative radiographic report should not delay biopsy if a dominant or clinically suspicious mass is present. Up to ten percent of cancers are not identified on mammography. A negative report may reinforce clinical impression. Adenosis and dense breasts may obscure an underlying neoplasm. False positive reports average 6 to 10%. Patient will receive a letter notifying them of these results.
== END ==
PROVIDERS: PCP Family Medicine; Visit Provider Family Medicine
DX: Z12.31 Encounter for screening mammogram for malignant neoplasm of breast (principal)
CPT/HCPCS: 77063; 77067

== ENCOUNTER 2022-09-05 02:31 | Outpatient (CLI) | payer MEDICARE, SELFPAY ==
--- NOTE | 2022-09-05 | DI.DEXA_ITS ---
Exam(s) XR DEXA BONE DENSITY W/WO HIREN EXAM: XR DEXA BONE DENSITY W/WO HIREN CLINICAL HISTORY: SCREENING FOR OSTEOPOROSIS IN POSTMENOPAUSAL WOMAN,Z78.0 TECHNIQUE: Routine DEXA evaluation of the lumbar spine, hip, or forearm. COMPARISON: Prior DEXA scan performed 2014 FINDINGS: Performed on a [employer] unit. Lateral image: No compression fracture evident. Lumbar Spine total T-score: -2.3. Prior reading in 2015 was -1.6. Hip total T-score:-1.8. Prior reading in 2015 was -1.5 Independent reading at the level of the femoral neck yields T-score of -1.8 Forearm total T-score: -1.3 IMPRESSION: Bone mineral density measures in the osteopenia range. Fracture risk is moderate. Note: Any spine fracture indicates 5x risk for subsequent spine fracture and 2x risk for subsequent h ip fracture. World Health Organization criteria for BMD interpretation classify patients: Normal...... T- Score at or above -1.0 Osteopenic... T- Score between -1.0 and -2.5 Osteoporosis... T-Score at or below -2.5
== END 2022-09-05 02:51 ==
LOC: DI 02:32
PROVIDERS: PCP Family Medicine; Visit Provider Family Medicine
DX: Z78.0 Asymptomatic menopausal state (principal); Z13.820 Encounter for screening for osteoporosis; M85.89 Other specified disorders of bone density and structure, multiple sites
CPT/HCPCS: 77080

== ENCOUNTER 2023-08-16 11:20 | Outpatient (REF) | payer MEDICARE, SELFPAY ==
[2023-08-16 16:04] LABS: ALT 24 U/L (14-59); AST 18 U/L (15-37); Albumin 3.6 g/dL (3.4-5.0); Alkaline Phosphatase 92 U/L (46-116); Anion Gap 7.4 mmol/L (3-11); BUN 17 mg/dL (7-18); Bilirubin, Total 0.5 mg/dL (0.2-1.0); CO2 28.6 mmol/L (21.0-32.0); CREATININE 0.8 mg/dL (0.55-1.02); Calcium 9.5 mg/dL (8.5-10.1); Calculated LDL 99 mg/dL (<100); Chloride 103 mmol/L (98-107); Cholesterol 189 mg/dL (<200); Estimated GFR 79.71 (mL/min/1.73m2); Glucose 95 mg/dL (74-106); HDL Cholesterol 59 mg/dL (40-60); Potassium 4.3 mmol/L (3.5-5.1); Sodium 139 mmol/L (136-145); TSH (W/Ref FT4) 2.58 uIU/mL (0.36-3.74); Total Protein 7.9 g/dL (6.4-8.2); Triglyceride 158 mg/dL (<150); Vitamin B12 1054 pg/mL (193-986)
[2023-08-16 16:24] LABS: Hemoglobin A1C 5.6 % (<5.7)
== END 2023-08-16 11:21 | disposition home or self-care (01) ==
LOC: NCHCN 11:20
PROVIDERS: PCP Family Medicine; Visit Provider Family Medicine
DX: Z00.00 Encounter for general adult medical examination without abnormal findings (principal)
CPT/HCPCS: 80053; 80061; 82607; 83036; 84443

== ENCOUNTER 2024-12-26 00:20 | Outpatient (CLI) | payer MEDICARE, SELFPAY ==
--- NOTE | 2024-12-26 | DI.MAMMO_ITS ---
Exam(s) MAMMO SCREENING EXAM: MAMMO SCREENING CLINICAL HISTORY: Z12.31 Screening. TECHNIQUE: Bilateral full field digital CC and MLO mammographic images were obtained with 3D tomosyn thesis and utilizing computer aided detection (CAD). COMPARISON: Prior mammograms were reviewed. FINDINGS: There has been no significant change in the appearance and distribution of the fibroglandular tissue. Small benign-appearing nodule laterally in left breast is unchanged from 2017. There are no new spiculated masses nor malignant appearing microcalcification groups. There is no significant architectural distortion nor skin thickening-retraction. IMPRESSION: No radiographic evidence of malignancy. BI-RADS Category 1 - Negative Breast Density - Category B - There are scattered areas of fibroglandular density. Breast density Category C or D implies that the patient has dense breast tissue. Dense breast tissue can make it harder to find cancer on a mammogram. Dense breast tissue is also associated with an incr eased risk of breast cancer. This information about the result of the mammogram report was provided to the patient to raise their awareness. Use this report when you speak with the patient about their risks for breast cancer, which includes their family history. At that time, you may recommend additional screening tests (Ultrasoun d or MRI) as these tests may add significant information. A negative radiographic report should not delay biopsy if a dominant or clinically suspicious mass is present. Up to ten percent of cancers are not identified on mammography. A negative report may reinforce clinical impression. Adenosis and dense breasts may obscure an underlying neoplasm. False positive reports average 6 to 10%. Patient will receive a letter notifying them of these results.
== END 2024-12-26 00:40 ==
LOC: DI 00:20
PROVIDERS: PCP Family Medicine; Visit Provider Family Medicine
DX: Z12.31 Encounter for screening mammogram for malignant neoplasm of breast (principal); R92.323 Mammographic fibroglandular density, bilateral breasts
CPT/HCPCS: 77063; 77067